=== PATIENT | male | born 1985 | race Two or more races ===

== ENCOUNTER 2024-09-10 14:18 | Outpatient (CLI) | payer OTHER | END 2024-09-10 14:26 | disposition home or self-care (01) | LOC: SONOGRAMA 14:18 | PROVIDERS: ATTEND General Practice | DX: N50.819 Testicular pain, unspecified (principal); N45.1 Epididymitis ==

== ENCOUNTER 2024-12-12 02:13 | Emergency (ER) | payer OTHER ==
[~2024-12-12] VITALS: Ht 180.3 cm; Wt 89.8 kg
[2024-12-12] MEDS ORDERED: ROSUVASTATIN CA10 MG PO (02:40)
[2024-12-12] MEDS ORDERED: KETOROLAC TROMETHAMINE 30 MG VIAL IV STA (03:34)
[2024-12-12] MEDS ORDERED: PROMETHAZINE HCL 50 MG/ML AMPUL IM STA (03:34)
[2024-12-12] MEDS ORDERED: SODIUM CHLORIDE 0.45 % 1,000 ML IV ONE (03:45)
[2024-12-12] MEDS ORDERED: KETOROLAC TROMETHAMINE 30 MG VIAL ONE ×2 (03:47→09:08)
[2024-12-12 04:00] LABS: BASO % 0.3 % (0.1-1.2); EOS # 0.21 (0.04-0.54); EOS % 1.5 % (0.7-7.0); LYMPH # 2.01 (1.18-3.74); LYMPH % 13.9 % (19.3-53.1); MEAN PLATELET VOLUME 11.20 fl (9.4-12.4); MONO # 1.41 (0.24-0.82); MONO % 9.8 % (4.7-12.5); NEUT # 10.69 (1.56-6.13); NEUT % 74.1 % (34.0-71.1); RED CELL DISTRIBUTION WIDTH 11.9 % (11.6-14.4)
[2024-12-12 04:31] LABS: BUN CREA RATIO 11.0 (7.0-25.0); CREATININE SERUM 0.97 mg/dL (0.70-1.30); GFR 87.09; GLUCOSE FASTING 107.0 mg/dL (65-100); OSMOLALITY SERUM 283.0 MOSM/KG (275-295)
[2024-12-12 05:03] LABS: URINE APPEARANCE Clear; URINE BILIRRUBIN Negative (NEGATIVE); URINE BLOOD Negative; URINE COLOR Yellow; URINE EPITHELIAL CELLS 3.2 uL (0.0-38.8); URINE GLUCOSE Negative (NEGATIVE); URINE KETONE Trace (NEGATIVE); URINE LEUKOCYTE Negative; URINE NITRATE Negative; URINE PROTEIN Negative (NEGATIVE); URINE UROBILINOGEN 0.2 E.U./dl; URINE WBC 7.2 uL (0.0-23.2)
[2024-12-12 05:06] LABS: URINE BACTERIA 3.5 uL (0.0-1933); URINE CAST 0.29 uL (0.0-1.40); URINE RBC 1.3 uL (0.0-20.8)
[2024-12-12] MEDS ORDERED: CEFTRIAXONE SODIUM 1,000 MG VIAL IV STA (06:56)
[2024-12-12] MEDS ORDERED: CEFTRIAXONE SODIUM 1,000 MG VIAL ONE (07:11)
[2024-12-12] MEDS ORDERED: CIPROFLOXACIN IN 5 % DEXTROSE 400 MG/200 ML PIGGYBAG IV STA (08:27)
[2024-12-12] MEDS ORDERED: METRONIDAZOLE/SODIUM CHLORIDE 500 MG/100 ML PIGGYBACK IV STA (08:27)
[2024-12-12] MEDS ORDERED: KETOROLAC TROMETHAMINE 15 MG VIAL IV STA (08:29)
[2024-12-12] MEDS ORDERED: CIPROFLOXACIN IN 5 % DEXTROSE 400 MG/200 ML PIGGYBAG IV ONE (09:08)
[2024-12-12] MEDS ORDERED: METRONIDAZOLE/SODIUM CHLORIDE 500 MG/100 ML PIGGYBACK IV ONE (09:08)
[2024-12-12] MEDS ORDERED: PEPCID AC20 MG PO (17:54)
[2024-12-12] MEDS ORDERED: INTESTINEX680 M1 PO (17:54)
[2024-12-12] MEDS ORDERED: CIPRO500 MG PO (17:54)
[2024-12-12] MEDS ORDERED: METRONIDAZOLE500 MG PO (17:54)
[2024-12-12] MEDS ORDERED: KETO10TA2 PO (17:54)
[2024-12-12 18:44] VITALS: BP 126/70; O2SAT 99
== END 2024-12-12 18:48 | disposition home or self-care (01) ==
LOC: ER 02:13
PROVIDERS: General Practice
DX: K57.32 Diverticulitis of large intestine without perforation or abscess without bleeding (principal)